=== PATIENT | female | born 1955 | race African-American/Black ===

== ENCOUNTER 2017-01-02 03:18 | Inpatient (IN) | payer MEDICARE ==
[~2017-01-02] VITALS: Ht 160 cm; Wt 152.2 kg
--- NOTE | ~2017-01-02 | BMI ---
[facility] Nutrition Therapy DATE: 01/03/17 Patient: CARLTON HERNANDEZ Physician: ZACHERY Address: [address] [place] [address] Room/Bed: [address] [place] [address], Zip: [place] [address] Admit Date: 01/02/17 Date of : 57 Height: 5 3 Weight: 335 152.2 HIGH BMI NOTE: ANTHROPOMETRICS: HT: 63" WT: 152.5 KG BMI: 59.6 DIET: CONSISTENT CARBOHYDRATE RECOMMENDATIONS: 1. ADD HEART HEALTHY TO CURRENT DIET IN ORDER TO PROMOTE GRADUAL WEIGHT LOSS TOWARDS A HEALTHY BMI RANGE. Respectfully, JU ALVARADO RD, LD Food and Nutritional Services [facility] cc: client file
--- NOTE | ~2017-01-02 | CR72 ---
[facility] A Service of [facility] & [facility] RADIOLOGY TEXT RESULTS PATIENT: CARLTON HERNANDEZ LOCATION: [facility] 327-01 : 57 UNIT #: [id number] AGE: [address]: Mary Lundy MD SEX: F ORDER DR: [id number] [facility] [address] [place], [place] [address] [id number] I MR#: [id number] #: [id number] NAME: CARLTON HERNANDEZ : 1955 SEX: F STUDY DATE/TIME: 01/02/2017 3:52 UNIT: [address] ROOM: [facility] STUDY DESCRIPTION: CR Chest Single View Portable Attending Physician: Mary Lundy M.D. Ordering Physician: Elvis Gallagher M.D. Primary Care Physician: Valerie Kidd M.D. MEDICAL IMAGING REPORT This report is preliminary unless electronic signature is present EXAM Chest x-ray, 01/02/2017. HISTORY 61-year-old female in the ED complaining of a 2-day history of shortness of air and chest congestion. TECHNIQUE AP portable upright chest x-ray. FINDINGS The exam shows low lung volumes with mild basilar atelectasis. Lungs appear clear. Heart size and pulmonary vascularity are normal. No visible pulmonary infiltrate or pleural effusion. IMPRESSION No active disease. Dictated by... Sadi Dill M.D. THIS IS AN ELECTRONICALLY VERIFIED REPORT Sadi Dill M.D. at 01/02/2017 9:58 PM SUSANW/chris TD: 01/02/2017 10:43 JOB #: [id number] MEDICAL IMAGING REPORT Page 1 of 1 COPY
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
--- NOTE | ~2017-01-02 | DS ---
Unit #: [id number] #: [id number] Patient: CARLTON HERNANDEZ [id number] [address] [address] [id number] I MR#: [id number] NAME: CARLTON HERNANDEZ ROOM: 327 Age: 61 Sex: F Admission Date: 01/02/2017 : 1955 Discharge Date: 01/03/2017 Attending Physician: Mary Lundy M.D. Primary Care Physician: Valerie Kidd M.D. DISCHARGE SUMMARY ADMISSION DIAGNOSES 1. Asthma/COPD exacerbation with acute hypoxic respiratory failure. 2. Adult onset diabetes mellitus with peripheral neuropathy. 3. Essential hypertension. 4. Pedal edema. 5. THANH with prescription for [employer] to replace equipment. DISCHARGE DIAGNOSES 1. Asthma/chronic obstructive pulmonary disease exacerbation, resolving. 2. Type 2 diabetes mellitus with peripheral neuropathy, stable. 3. Hypertension, stable. 4. Pedal edema, improved. 5. Obstructive sleep apnea, established with [facility] with prescription to replace CPAP and tubing. 6. History of tobacco abuse. 7. Hypokalemia, status post repletion. CONSULTANTS None. PROCEDURES None. DIAGNOSTIC STUDIES LABORATORY: WBC 6.8, hemoglobin 13.4, hematocrit 42.0, platelets 223,000. Sodium 138, potassium 3.3, chloride 101, CO2 30, glucose 220, BUN 22, creatinine 1.0, calcium 9.0, AST 13, ALT 11, alkaline phos. 55, bili total 0.7. IMAGING: Portable chest x-ray. Impression - no active disease. CONDITION Stable. DISPOSITION Home and established with [facility]. DISCHARGE MEDICATIONS 1. Albuterol sulfate 3 mL nebulizer q.i.d. 2. Ventolin aerosol, two puffs inhaled b.i.d. as needed for shortness of breath. 3. Ipratropium bromide, one nebulizer inhaled q.6 hours as needed for shortness of breath. 4. Flonase 0.05% nasal spray, two sprays nasally daily. Unit #: [id number] #: [id number] Patient: CARLTON HERNANDEZ 5. Spiriva 18 mcg inhaled daily. 6. Gabapentin 300 mg p.o. b.i.d. 7. Topamax 25 mg p.o. daily. 8. Metformin HCL 500 mg p.o. b.i.d. 9. Loratadine 10 mg tab, one p.o. daily p.r.n. allergies. 10. Dulera 200 mcg/5 mcg inhaler, two puffs inhaled b.i.d. 11. Furosemide 40 mg p.o. daily. 12. Pravastatin sodium 20 mg p.o. in the evening. 13. Lisinopril 20 mg p.o. daily. 14. Tramadol HCL 50 mg p.o. b.i.d. p.r.n. pain. 15. Omeprazole 20 mg p.o. daily. 16. Vitamin D2 50,000 units p.o. weekly. 17. Prednisone taper - 20 mg tabs, two tabs p.o. daily x3 days, then one tab p.o. daily x3 days, then discontinue. DISCHARGE INSTRUCTIONS Follow up with primary care physician within 5 to 7 days to follow up on COPD, diabetes mellitus, and hypertension. Again, patient is to follow up with [facility] for CPAP and tubing for THAN[facility] equipment. HOSPITAL COURSE The patient is a morbidly obese 61-year-old -[place] female who presented to [facility] on the date of admission for the reasons indicated above. She had been seen by her primary care physician, given a prescription for Zithromax, steroid taper as well as usual bronchodilators but did housework at home and became increasingly short of breath with wheezing. She was transferred to the hospital via EMS. She had bilateral wheezing with O2 sats of 93% on O2. She was admitted to the hospital for further evaluation and management of her condition. The patient was treated with IV Solu-Medrol with inhaled bronchodilators and IV Zithromax. She has improved today and states she is breathing well and would like to be discharged home. She was evaluated by Dr. Lundy and has been cleared for discharge home today with followup and discharge instructions as dictated above. Dictated by... Princess Mcgee A.P.R.N. for Elena Hansen/mercedez TD: 01/06/2017 06:01 JOB #: [id number] DISCHARGE SUMMARY Page 1 of 1 X Princess Mcgee APRN X DISCHARGE SUMMARY
[~2017-01-02 03:18] MED LIST: CLARITIN D PO; METFORMIN PO; NEURONTIN PO; ULTRAM PO
[2017-01-02] MEDS ORDERED: ALBUTEROL2.5 MG/3 M (03:26)
[2017-01-02] MEDS ORDERED: ZITHROMAX (03:27)
[2017-01-02] MEDS ORDERED: DULERA 200 MCG/13 GM INH (03:28)
[2017-01-02] MEDS ORDERED: FUROSEMIDE40 MG PO (03:28)
[2017-01-02] MEDS ORDERED: FLONASE 0.05% N16 G1 (03:28)
[2017-01-02] MEDS ORDERED: GABAPENTIN300 MG PO (03:29)
[2017-01-02] MEDS ORDERED: IPRATROPIU0.2 MG/1 M INH (03:29)
[2017-01-02] MEDS ORDERED: METFORMIN HCL500 M1 PO (03:30)
[2017-01-02] MEDS ORDERED: OMEPRAZOLE20 M1 PO (03:30)
[2017-01-02] MEDS ORDERED: ALLERGY10 M1 PO (03:30)
[2017-01-02] MEDS ORDERED: LISINOPRIL20 MG PO (03:30)
[2017-01-02] MEDS ORDERED: SPIRIVA18 MCG INH (03:31)
[2017-01-02] MEDS ORDERED: PRAVASTATIN SOD20 MG PO (03:31)
[2017-01-02] MEDS ORDERED: TOPAMAX25 MG PO (03:32)
[2017-01-02] MEDS ORDERED: ALBUTEROL17 GM INH (03:33)
[2017-01-02] MEDS ORDERED: TRAMADOL HCL50 M1 PO (03:33)
[2017-01-02] MEDS ORDERED: VITAMIN D250000 UNIT PO (03:33)
[2017-01-02 03:46] LABS: BASOPHIL% 0.7 % (0-2.5); EOSINOPHIL# 0.2 X10e3 (0-0.7); EOSINOPHIL% 3.2 % (0.0-7.0); HEMOGLOBIN 13.4 gm/dL (12.0-16.0); LYMPHOCYTE# 2.1 X10e3 (1.0-3.5); LYMPHOCYTE% 30.9 % (17.0-45.0); MEAN CELL VOLUME 85.8 FL (83-96); MEAN CORPUSCULAR HEMOGLOBIN 27.3 PG (28-34); MEAN CORPUSCULAR HGB CONC 31.8 g/dL (30-36); MEAN PLATELET VOLUME 8.6 FL (6.5-11.5); MONOCYTE# 0.7 X10e3 (0-1.0); MONOCYTE% 10.1 % (3.0-12.0); NEUTROPHIL# 3.8 X10e3 (1.5-7.1); NEUTROPHIL% 55.1 % (40-75); PLATELET COUNT 223 X10e3 (140-420); RED BLOOD COUNT 4.89 X10e (3.90-5.30); WHITE BLOOD COUNT 6.8 X10e3 (4.0-10.5)
[2017-01-02 03:47] LABS: DIFF IND NO
[2017-01-02 04:04] LABS: POC - CKMB <1.0 ng/mL (0.0-7.9); POC - TROPONIN <0.05 ng/mL (<=0.05)
[2017-01-02 04:13] LABS: ALBUMIN SERUM 3.9 g/dL (3.5-5.0); BILIRUBIN, DIRECT 0.1 mg/dL (0.0-0.2); BILIRUBIN,INDIRECT 0.6 mg/dL (0.0-0.9); BILIRUBIN,TOTAL 0.7 mg/dL (0.2-2.0); GLOM FILT RATE Estimated 70.9 mL/min (>60); POTASSIUM 3.3 mmol/L (3.5-5.1); PROTEIN TOTAL SERUM 7.6 g/dL (6.0-8.3)
[2017-01-03] MEDS ORDERED: PREDNISONE10 M1 (15:56)
[2017-01-03] MEDS ORDERED: ALBUTEROL2.5 MG/3 M NEB (15:56)
== END 2017-01-03 17:50 | disposition home or self-care (01) | DRG 190 ==
LOC: CED 03:18 → CEDOF 05:30 → CED 05:38 → C3A PCU 05:38 → CEDOF 06:48 → C3A PCU 08:57
PROVIDERS: Emergency Medicine
DX: J44.1 Chronic obstructive pulmonary disease with (acute) exacerbation (principal); J96.01 Acute respiratory failure with hypoxia; Z68.44 Body mass index [BMI] 60.0-69.9, adult; J45.901 Unspecified asthma with (acute) exacerbation; E66.01 Morbid (severe) obesity due to excess calories; E11.42 Type 2 diabetes mellitus with diabetic polyneuropathy; I10 Essential (primary) hypertension; R60.0 Localized edema; G47.33 Obstructive sleep apnea (adult) (pediatric); Z88.2 Allergy status to sulfonamides; Z88.0 Allergy status to penicillin; Z80.9 Family history of malignant neoplasm, unspecified; Z82.49 Family history of ischemic heart disease and other diseases of the circulatory system
CPT/HCPCS: 36415; 71010; 80048; 80076; 82553; 82947; 84484; 85025; 94640; 94644; 94660; 94664; 94760; 99285; J0456; J1815; J1940; J2920